=== PATIENT | female | born 2005 | race Caucasian/White ===

== ENCOUNTER 2024-10-11 18:17 | Emergency (ER) | payer BC, SELFPAY ==
[2024-10-11 18:19] VITALS: BP 105/71; PULSE 85; RESP 18; TEMP 36.4; O2SAT 97; BMI 27.6
--- NOTE | 2024-10-11 18:22 | EX.ED.DYSGE1 ---
HPI History of Present Illness Chief Complaint: Chest Other [facility] Medical History (Updated 10/11/24 @ 18:33 by Ailyn Campo) Anxiety Hip dysplasia, congenital Home Medications ?Medication ?Instructions ?Recorded ?Last Taken ?Type No Known/Unobtainable [No Known 02/15/14 Unknown History Home Medications] Allergy/AdvReac Type Severity Reaction Status Date / Time No Known Allergies Allergy Verified 10/11/24 18:19 Surgical History (Updated 10/11/24 @ 18:33 by Ailyn Campo) H/O wisdom tooth extraction Social History (Updated 10/11/24 @ 18:33 by Ailyn Campo) household members: family housing: house current occupational status: employed Smoking Status: Never smoker EXAM Physical Exam Const Vital Signs: 10/11/24 18:19 10/11/24 18:35 Temperature 97.6 F L Temperature Source Temporal Pulse Rate 85 Respiratory Rate 18 Respiratory Effort Normal Non-Labored Blood Pressure 105/71 Blood Pressure Mean 82 Pulse Ox 97 Oxygen Delivery Method Room Air MDM MDM MDM Narrative Medical decision making narrative: HISTORY OF PRESENT ILLNESS: Chief complaint: Lump 19 female presents with concern for lumps. Notes yesterday she noticed a palpable lump in her right neck/right supraclavicular area. Denies sore throat. Denies ear pain. Denies fever. Denies chills. Denies breast mass lumps or other changes. REVIEW OF SYSTEMS: Pertinent positives: Lumps Pertinent negatives: Fevers, chills, sore throat, ear pain, breast mass or lump. PHYSICAL EXAM: Nursing triage notes reviewed, Vital signs reviewed Constitutional: please see mdm HENT: MMM Eyes: Pupils equal round and reactive to light, Extraocular muscles intact Neck: No stridor, no JVD, full neck ROM, palpable lymphadenopathy in the right anterior cervical chain and right supraclavicular chain Lungs: Clear to auscultation, No wheezing or rales. No increased work of breathing, no conversational dyspnea, no accessory muscle use, no nasal flaring. No respiratory distress noted Heart: Regular rate and rhythm, No murmurs, No rubs and No gallops, 2+ distal pulses (radial, femoral, posterior tibial) in all extremities Abdomen: Soft, there is no tenderness, rigidity, rebound or guarding, no obvious peritoneal signs, no palpable pulsatile abdominal masses, no auscultated abdominal bruit Neuro: No new focal neurological deficits, cranial nerves II through XII intact, 5/5 strength in all present extremities. Intact sensation to light touch in all present extremities, 2+ reflexes bilateral patella tendons. Skin: No rash or lesions noted MEDICAL DECISION MAKING: Chief Complaint: please see HPI Factors affecting care: none Social determinants of health: Denies drugs History obtained from others: Significant other (boyfriend) Consults: none [facility] Narrative: The patient was initially hemodynamically stable, afebrile and nontoxic. Exam consistent with likely lymphadenopathy. The patient HEENT exam is unremarkable for signs otitis media, pharyngitis, peritonsillar abscess. No abscess. There is no obvious stridor or other neck pathology noted. Patient denied any breast pathology Encouraged Tylenol and ibuprofen. Encouraged prompt follow-up for worsening symptoms and follow-up if symptoms persist for greater than 2 weeks. The patient and/or family, caregivers express understanding. The patient and/or family, caregivers agrees with the plan. Shared decision making: I will have a discussion with the patient and or visitors regarding risk/benefits of further testing or admission. They will be made aware of of the risk/benefits inherent in this decision they will be given the opportunity to voice understanding. Total critical care time today provided was at least 0 minutes. This excludes separately billable procedures. Critical care time (if documented) is secondary to the patient having high probability of clinically significant/life threatening deterioration in the patient's condition which required my urgent intervention. Impression: 1. Cervical of adenopathy Dispo: Discharge home This note was generated with [employer] dictation software. It may contain incorrect words, spelling, and punctuation that were not noted in review of the chart prior to signing. Discharge Plan Triage Chief Complaint: Chest Other ED Provider: Pastor Raymundo Dx/Rx/DC Orders Instructions: Lymphadenopathy Prescriptions: No Action No Known Home Medications Primary Care Provider: Sujit Jolly Referrals: Sujit Jolly MD [Primary Care Provider] - Activity Restrictions/Additional Instructions: Thank you for trusting us with your care today! Please take Tylenol (2 pills, 650 mg), ibuprofen (2 pills, 400 mg) every 6 hours as needed for pain and fever control. Please return to the emergency department if your symptoms change or worsen. Please follow with your primary care physician for further outpatient evaluation and management. Please seek further medical attention if your symptoms persist for greater than 2 weeks or change rapidly or abruptly. Print Language: Panamanian Disposition Disposition: Home, Self Care
--- OUTSIDE RECORDS SUMMARY | 2024-10-11 18:50 | XMS RPT_ITS | CCD ---
Author Organization [facility] Care Team Providers Care Locomotive Driver Name Role Phone Sujey Fowler MD Primary Care Provider SUJEY FOWLER Primary Care Unavailable SUJEY FOWLER Primary Care Unavailable SUJEY FOWLER MD Consulting Unavailable DIDTIFFANY MONTENEGRO DO Attending Unavailable DIDTIFFANY MONTENEGRO DO Primary Care Unavailable DIDTIFFANY MONTENEGRO DO Admitting Unavailable SUJEY FOWLER MD Referring Unavailable PROVIDER, UNKNOWN Consulting Unavailable Medications Completed/Discontinued Medications Medication Drug Class(es) Dates Sig (Normalized) Sig (Original) brompheniramine maleate 0.4 mg/ml / dextromethorphan hydrobromide 2 mg/ml / pseudoephedrine hydrochloride 6 mg/ml oral solution (1 source) alpha-Adrenergic Agonist, Uncompetitive K-mrgljc-S-aspartat e Receptor Antagonist, Sigma-1 Agonist Start: 01-25-2023 take 10 mL by mouth every six hours as needed Brompheniramine-Pse udoeph-DM (BROMFED DM) 2-30-10 mg/5 mL syrup Take 10 mL by mouth four times daily as needed. 200 mL 0 01/25/2023 Active Comment on above: Take 10 mL by mouth four times daily as needed. diphenhydrAMINE hydrochloride 2.5 mg/ml oral solution (2 sources) Histamine-1 Receptor Antagonist diphenhydrAMINE (BENADRYL ALLERGY) 12.5 mg/5 mL liquid Take by mouth four times daily as needed. 0 Active Comment on above: Take by mouth four t imes daily as needed. fluticasone propionate 0.05 mg/actuat metered dose nasal spray (1 source) Corticosteroid Start: 01-25-2023 take 2 spray(s) by mouth once daily fluticasone (FLONASE) 50 mcg/actuation nasal spray Use 2 Sprays in each nostril once daily. Rinse mouth after use. 1 Each 0 01/25/2023 Active Comment on above: Use 2 Sprays in each nostril once daily. Rinse mouth after use. Problems Problem Classification Problem Date Documented Da te Episodic/Chronic Nausea and vomiting (3 sources) Nausea with vomiting, unspecified; Translations: [Nausea with vomiting, unspecified] Onset: 03-01-2023 Episodic Other bone disease and musculoskeletal deformities (2 sources) Apophysitis; Translations: [Osteochondropathy , unspecified, unspecified thigh] Onset: 06-05-2018 06-05-2018 Chronic Other congenital anomalies (2 sources) Congenital subluxation of hip; Translations: [Congenital partial dislocation of unspecified hip, unilateral] Onset: 2004 2004 Chronic Other ear and sense organ disorders (1 source) Bilateral earache; Translations: [Otalgia, bilateral] 01-25-2023 Episodic Other upper respiratory infections (2 sources) Sore throat symptom; Translations: [Acute pharyngitis, unspecified] 01-24-2023 Episodic Substance-related disorders (1 source) Nicotine dependence, unspecified, uncomplicated; Translations: [Nicotine dependence, unspecified, uncomplicated] Onset: 03-01-2023 Chronic Results Test Name Value Interpretation Reference Range Facil ity COVID NAAT, UPPER RESPIRATOR Y, ROUTINEon 01-26-2023 SARS-CoV-2 (COVID-19) RNA BRAD+probe Ql (Resp) Not detected See comment [facility] ROUTINE FLU A/B + RSVon 01-06 FLUAV RNA BRAD+probe Ql (Unsp spec) Not detected Not Detected [facility] FLUBV RNA BRAD+probe Ql (Unsp spec) Not detected Not Detected [facility] RSV A RNA BRAD+probe Ql (Unsp spec) Not detected Not Detected [facility] CNOVon 01-25-2023 CNOV Office Visit (UCWSTR ) WESTON MEDEIROS ([id number]) 3 F Date Time Provider Department 9/21/23 12:30 PM BENY RAMSEY WSTR During your visit today, we recorded the following information about you: Temperature Pulse Respiration Blood pressure 98 degrees 72/minute 18/minute 106/74 Weight 83.6 kg Beny Ramsey PA-C 01/25/2023 2:20 PM Signed This note was created using [employer]. Subjective Weston Medeiros is a 17 year old female. HPI Patient presents with bilateral ear pain, cough, congestion for 3 days. She was seen yesterday and had a negative strep. She had declined viral testing. No fever. No cp or sob. She tried mucinex and ibuprofen otc. Review of Systems Constitutional: Positive for fatigue. Negative for fever. HENT: Positive for congestion, ear pain, rhinorrhea and sore throat. Respiratory: Positive for cough. Negative for shortness of breath and wheezing. Cardiovascular: Negative. Gastrointestinal: Negative. Genitourinary: Negative. Musculoskeletal: Negative. All other systems reviewed and are negative. PAST MEDICAL HISTORY Diagnosis Date Congenital dislocation of hip, bilateral PMH - PAST MEDICAL HISTORY OF 07/30/07 normal color vision Current Outpatient Medications Medication Sig Dispense Refill Brompheniramine-Pseudo eph-DM (BROMFED DM) 2-30-10 mg/5 mL syrup Take 10 mL by mouth four times daily as needed. 200 mL 0 fluticasone (FLONASE) 50 mcg/actuation nasal spray Use 2 Sprays in each nostril once daily. Rinse mouth after use. 1 Each 0 diphenhydrAMINE (BENADRYL ALLERGY) 12.5 mg/5 mL liquid Take by mouth four times daily as needed. (Patient not taking: Reported on 01/24/2023) No current facility-administered medications for this visit. PAST SURGICAL HISTORY Procedure Laterality Date PAST SURGICAL HISTORY OF age 3 months, hip dysplasia surgery per Dr Alegria FAMILY HISTORY Problem Relation Age of Onset Heart Maternal Grandfather Breast Cancer Maternal Grandfather mggm and pggm Social History Tobacco Use Smoking status: Never Smokeless tobacco: Never Objective BP 106/74 Pulse 72 Temp 36.7 ?C (98 ?F) (Tympanic) Resp 18 Wt 83.6 kg (184 lb 3.2 oz) LMP 01/22/2023 (Exact Date) SpO2 97% Physical Exam Vitals reviewed. Constitutional: Appearance: Normal appearance. HENT: Head: Normocephalic and atraumatic. Right Ear: Tympanic membrane, ear canal and external ear normal. Left Ear: Tympanic membrane, ear canal and external ear normal. Nose: Congestion present. Mouth/Throat: Mouth: Mucous membranes are moist. Pharynx: Oropharynx is clear. Cardiovascular: Rate and Rhythm: Normal rate and regular rhythm. Heart sounds: Normal heart sounds. Pulmonary: Effort: Pulmonary effort is normal. Breath sounds: Normal breath sounds. Musculoskeletal: Cervical back: Neck supple. Skin: General: Skin is warm and dry. Findings: No rash. Neurological: Mental Status: She is alert. Assessment and Plan ASSESSMENT/PLAN: 1. URI, acute - ICD9: 465.9, ICD10: J06.9 (primary diagnosis) - Discussed viral etiology and rationale for treatment. - Symptomatic treatment with prn analgesia - Supportive care with fluids and rest - COVID AND INFLUENZA A/B AND RSV NAAT, ROUTINE - COVID NAAT, UPPER RESPIRATORY, ROUTINE - ROUTINE FLU A/B + RSV 2. Otalgia of both ears - ICD9: 388.70, ICD10: H92.03 Flonase otc, may continue ibuprofen. Beny Ramsey PA-C Allergies As of Date: 01/25/2023 (No Known Allergies) Date Reviewed: 01/25/2023 Reviewed by: Tea Rodrigues LPN - Fully Assessed Reason for Visit: Ear Pain [817] Cmt: Right ear pain x 3 days Primary Visit Diagnosis:URI, acute [J06.9] Other Visit Diagnosis:Otalgia of both ears [H92.03] Order(s):Bromphenirami gg-Ichlvlshf-OM (BROMFED DM) 2-30-10 mg/5 mL syrupTake 10 mL by mouth four times daily as needed.Disp: 200 mLRfl: 0 fluticasone (FLONASE) 50 mcg/actuation nasal sprayUse 2 Sprays in each nostril once daily. Rinse mouth after use.Disp: 1 EachRfl: 0 COVID AND INFLUENZA A/B AND RSV NAAT, ROUTINE [SQCVFLRS] Order #: [id number]. #:[id number] COVID NAAT, UPPER RESPIRATORY, ROUTINE [SQCOVID] Reflex Order#: [id number] (Ord#:[id number])Spec. #:[id number] ROUTINE FLU A/B + RSV [SQRTFRSV] Reflex Order#: [id number] (Ord#:[id number])Spec. #:[id number] Prescriptions as of 01/25/2023 - Brompheniramine-Pseudo eph-DM (BROMFED DM) 2-30-10 mg/5 mL syrup Take 10 mL by mouth four times daily as needed. - fluticasone (FLONASE) 50 mcg/actuation nasal spray Use 2 Sprays in each nostril once daily. Rinse mouth after use. - diphenhydrAMINE (BENADRYL ALLERGY) 12.5 mg/5 mL liquid Take by mouth four times daily as needed. Problem List As Of Date 01/25/2023 Noted Resolved NARESH HIP SUBLUX, UNILAT [Q65.30] 2004 Fracture of radius, distal, right, closed [S52.*07/31/2011 (more content not included)... Normal [facility] ROUTINE FLU A/B + RSVon 01-06 FLUAV RNA BRAD+probe Ql (Unsp spec) Not detected Normal Not Detected [facility] Comment on above: Order Comment: Speci men Type: SWAB OF INTERNAL NOSE Ordering Facility: [facility] Address: [address] [place] [address] Performed By: #### R TFRSV, 46272-3 #### [facility] CLIA [id number] [address] [place] [address] [place] FLUBV RNA BRAD+probe Ql (Unsp spec) Not detected Normal Not Detected [facility] Comment on above: Order Comment: Speci men Type: SWAB OF INTERNAL NOSE Ordering Facility: [facility] Address: [address] [place] [address] Performed By: #### R TFRSV, [id number] #### [facility] CLIA [id number] [address] [place] [address] [place] RSV A RNA BRAD+probe Ql (Unsp spec) Not detected Normal Not Detected [facility] Comment on above: Order Comment: Speci men Type: SWAB OF INTERNAL NOSE Ordering Facility: [facility] Address: [address] [place] [id number] Performed By: #### R TFRSV, 47063-2 #### [facility] CLIA [id number] [facility] OF [place] SARS-CoV-2 RNA Resp Ql BRAD+p robeon 01-25-2023 SARS-CoV-2 (COVID-19) RNA BRAD+probe Ql (Resp) COVID 19 RESULT: Not detected The method used is RT-PCR or an equivalent NAAT method. Reference Range (the expected result in uninfected individuals): Not detected Normal [facility] Comment on above: Performed By: #### R TFRSV, 71703-7 #### [facility] CLIA [id number] [address] [place] [address] [place] CNOVon 01-24-2023 CNOV Office Visit (UCTR ) ELIZABETHJessWESTON ([id number]) 3 F Date Time Provider Department 01/24/23 10:15 AM CARLOTA DENNEY [facility] During your visit today, we recorded the following information about you: Temperature Pulse Respiration Blood pressure 98.4 degrees 61/minute 22/minute 110/64 Weight Last Period 84.8 kg 01/22/23 Carlota Denney APRN.BUSINESS SUPPORT ASSISTANT 01/24/2023 10:27 AM Signed CC: Patient presents with: Sore Throat: Headache, bilat ear pain, congestion x 1 day HPI: Weston Nye Waldemar is a 17 year old female who presents to the office with complaint of head congestion, sore throat, and ear symptoms for the past day. Symptoms are staying the same. Associated symptoms includes headache. Denies fever, nausea, vomiting , and diarrhea. Treatments tried include nothing so far. with no relief of symptoms. Sick contacts: unknown. History of asthma, frequent episodes of bronchitis, chronic bronchitis, bronchiectasis or COPD: No Smoker: No Seasonal/environmental allergies: No The ROS is otherwise negative. The patient's pmh, medications, allergies, and past visits are reviewed. PHYSICAL EXAM: BP 110/64 Pulse 61 Temp 36.9 ?C (98.4 ?F) Resp 22 Wt 84.8 kg (187 lb) LMP 01/22/2023 (Exact Date) SpO2 98% General appearance: alert, cooperative, pleasant, in no acute distress Head: Normocephalic Eyes: EOM's intact, conjunctiva pink and moist, no icterus, sclera white, non-injected Ears: Right ear: External ear/canal- Normal, TM - clear with good landmarks. Left ear: External ear/canal- Normal, TM - clear with good landmarks Oropharynx:moderate erythema, without exudates present Heart: Negative. RRR without obvious murmur, gallop, or rubs. No ectopy. Lungs: clear to auscultation, without rales or wheeze, good air exchange PAST MEDICAL HISTORY Diagnosis Date Congenital dislocation of hip, bilateral PMH - PAST MEDICAL HISTORY OF 07/30/07 normal color vision PAST SURGICAL HISTORY Procedure Laterality Date PAST SURGICAL HISTORY OF age 3 months, hip dysplasia surgery per Dr Alegria ALLERGIES Patient has no known allergies. MEDICATIONS diphenhydrAMINE (BENADRYL ALLERGY) 12.5 mg/5 mL liquid Take by mouth four times daily as needed. (Patient not taking: Reported on 01/24/2023) FAMILY HISTORY Problem Relation Age of Onset Heart Maternal Grandfather Breast Cancer Maternal Grandfather mggm and pggm Social History Tobacco Use Smoking status: Never Smokeless tobacco: Never ASSESSMENT/PLAN: 1. Sore throat - ICD9: 462, ICD10: J02.9 - STREP A MOLECULAR (POC) - neg Does not want a viral swab. Potential red flag symptoms discussed with the patient. Reviewed appropriate action plan to take if red flag symptoms occur. Patient agreeable to treatment plan. Carlota Denney APRN.BUSINESS SUPPORT ASSISTANT Allergies As of Date: 01/24/2023 (No Known Allergies) Date Reviewed: 01/24/2023 Reviewed by: Rachel Regan LPN - Fully Assessed Reason for Visit: Sore Throat [200] Cmt: Headache, bilat ear pain, congestion x 1 day Primary Visit Diagnosis:Sore throat [J02.9] Order(s):STREP A MOLECULAR (POC) [9981357] Order #: [id number]. #:[id number] Prescriptions as of 01/24/2023 - diphenhydrAMINE (BENADRYL ALLERGY) 12.5 mg/5 mL liquid Take by mouth four times daily as needed. 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] 06/05/2018 Letter Text Encounter Status:Closed by CARLOTA DENNEY on 01/24/23 Normal [facility] STREP A MOLECULAR (POC)on Procedural Control Valid [facility] Strep A (POCT) Negative Negative [facility] Vital Signs Date Time Vital Sign Value Performing Clinician Preet talbert 01-25-2023 12:32-0400 Body temperature 98.01 [degF] Beny Ramsey PA-C Work Phone: [facility] 01-25-2023 12:32-0400 Body weight 83.55 kg Beny Athy PA-C Work Phone: [facility] 01-25-2023 12:32-0400 Diastolic blood pressure 74 mm[Hg] Beny Athy PA-C Work Phone: [facility] 01-25-2023 12:32-0400 Heart rate 72 /min Beny Athy PA-C Work Phone: [facility] 01-25-2023 12:32-0400 Respiratory rate 18 /min Beny Athy PA-C Work Phone: [facility] 01-25-2023 12:32-0400 SaO2% (BldA) [Mass fraction] 97 % Beny Ramsey PA-C Work Phone: [facility] 01-25-2023 12:32-0400 Systolic blood pressure 106 mm[Hg] Beny Ramsey PA-C Work Phone: [facility] 01-24-2023 10:13-0400 Body temperature 98.4 [degF] Carlota Denney APRN.BUSINESS SUPPORT ASSISTANT Work Phone: [facility] 01-24-2023 10:13-0400 Body weight 84.82 kg Carlota Denney APRN.BUSINESS SUPPORT ASSISTANT Work Phone: [facility] 01-24-2023 10:13-0400 Diastolic blood pressure 64 mm[Hg] Carlota Denney APRN.BUSINESS SUPPORT ASSISTANT Work Phone: [facility] 01-24-2023 10:13-0400 Heart rate 61 /min Carlota Denney APRN.BUSINESS SUPPORT ASSISTANT Work Phone: [facility] 01-24-2023 10:13-0400 Respiratory rate 22 /min Carlota Denney APRN.BUSINESS SUPPORT ASSISTANT Work Phone: [facility] 01-24-2023 10:13-0400 SaO2% (BldA) [Mass fraction] 98 % Carlota Denney APRN.BUSINESS SUPPORT ASSISTANT Work Phone: [facility] 01-24-2023 10:13-0400 Systolic blood pressure 110 mm[Hg] Carlota Denney APRN.BUSINESS SUPPORT ASSISTANT Work Phone: [facility] Encounters Encounter Date Encounter Type Care Provider Facility Start: 03-01-2023 End: 03-01-2023 Emergency department patient visit SUJEY FOWLER [facility] Start: 01-25-2023 End: 01-25-2023 ambulatory SUJEY FOWLER Facility:[facility] Start: 01-25-2023 End: 01-25-2023 Patient encounter procedure Beny Ramsey PA-C Work Phone: [facility] Comment on above: URI, acute (Primary Dx); Otalgia of both ears Start: 01-24-2023 End: 01-24-2023 ambulatory SUJEY [place] Facility:[facility] Start: 01-24-2023 End: 01-24-2023 Patient encounter procedure Carlota Denney APRN.BUSINESS SUPPORT ASSISTANT Work Phone: [facility] Comment on above: Sore throat (Primary Dx) Procedures Date Procedure Procedure Detail Performing Clinician Start: 01-25-2023 COVID & INFLUENZA A/ B & RSV NAAT, ROUTINE Beny Ramsey PA-C Work Phone: Start: 01-25-2023 Iadna respiratry pro be & rev trnscr 3-5 targets Beny Ramsey PA-C Work Phone: Start: 01-25-2023 Sars-cov-2 detection by dna/rna Beny Ramsey PA-C Work Phone: Start: 01-24-2023 STREP A MOLECULAR (POC) Silvano Denson APRN.BUSINESS SUPPORT ASSISTANT Work Phone: Plan of Treatment Date Care Activity Detail Author Start: 01-05-2023 Influenza vaccination Influenza Vacc ine (#1) [facility] Start: 2022 Chlamydia Screening (18-24) Chlamydia Screening (18-24) [facility] Start: 2022 GC (Gonorrhea) Scree tomasa (18-24) GC (Gonorrhea) Screening (18-24) [facility] Start: 2022 Hepatitis C Screening Hepatitis C Sc reening [facility] Start: 2022 HIV Screening HIV Screening [facility] Start: 05-07-2022 Depression Assessment Depression Ass essment [facility] Start: 2020 Meningococcal B Vacc ine: Consider Based On Risk (1 of 2 - Patient Seeks Protection) Meningococcal B Vaccine: Consider Based On Risk (1 of 2 - Patient Seeks Protection) [facility] Start: 2020 Meningococcal Conjug ate Vaccine (1 - 2-dose series) Meningococcal Conjugate Vaccine (1 - 2-dose series) [facility] Start: 2018 Peds To Adult Transi tion Annual Assessment Peds To Adult Transition Annual Assessment [facility] Start: 2016 Peds To Adult Transi tion Initial Discussion Peds To Adult Transition Initial Discussion [facility] Start: 07-20-2015 Urine microalbumin profile DTa P,Tdap,Td Vaccine (6 - Tdap) [facility] Start: 2013 HPV Vaccine (1 - 2-d ose series) HPV Vaccine (1 - 2-dose series) [facility] Start: 01-19-2005 Covid-19 Vaccine (#1) Covid-19 Vacci ne (#1) [facility] Immunizations Immunization Date Immunization Notes Care Provider Fa cilikristen 03-27-2012 influenza virus vaccine, live, attenuated, for intranasal use Carlota Denney APRN.BUSINESS SUPPORT ASSISTANT Work Phone: [facility] 03-27-2012 influenza virus vaccine, unspecified formulation Carlota Denney APRN.BUSINESS SUPPORT ASSISTANT Work Phone: [facility] 04-27-2011 influenza virus vaccine, live, attenuated, for intranasal use Carlota Denney APRN.BUSINESS SUPPORT ASSISTANT Work Phone: [facility] Work Phone: 04-27-2010 influenza virus vaccine, live, attenuated, for intranasal use Carlota Denney APRN.BUSINESS SUPPORT ASSISTANT Work Phone: [facility] 03-22-2009 influenza virus vaccine, live, attenuated, for intranasal use Carlota Denney APRN.BUSINESS SUPPORT ASSISTANT Work Phone: [facility] Work Phone: 07-29-2008 diphtheria, tetanus toxoids and acellular pertussis vaccine Carlota Denney APRN.BUSINESS SUPPORT ASSISTANT Work Phone: [facility] 07-29-2008 measles, mumps and rubella virus vaccine Carlota Denney APRN.BUSINESS SUPPORT ASSISTANT Work Phone: [facility] 07-29-2008 poliovirus vaccine, inactivated Carlota Denney APRN.BUSINESS SUPPORT ASSISTANT Work Phone: [facility] 03-26-2008 chicken pox (disease) Krupa Denney APRN.BUSINESS SUPPORT ASSISTANT Work Phone: [facility] Work Phone: 03-26-2008 influenza virus vaccine, live, attenuated, for intranasal use Carlota Denney APRN.BUSINESS SUPPORT ASSISTANT Work Phone: [facility] Work Phone: 04-08-2007 influenza virus vaccine, unspecified formulation Carlota Denney APRN.BUSINESS SUPPORT ASSISTANT Work Phone: [facility] 04-25-2006 influenza virus vaccine, unspecified formulation Carlota Denney APRN.BUSINESS SUPPORT ASSISTANT Work Phone: [facility] Work Phone: 10-19-2005 diphtheria, tetanus toxoids and acellular pertussis vaccine Carlota Denney APRN.BUSINESS SUPPORT ASSISTANT Work Phone: [facility] 10-19-2005 haemophilus influenz ae type b vaccine, HbOC conjugate Carlota Denney APRN.BUSINESS SUPPORT ASSISTANT Work Phone: [facility] 07-20-2005 measles, mumps and rubella virus vaccine Carlota Denney APRN.BUSINESS SUPPORT ASSISTANT Work Phone: [facility] 07-20-2005 pneumococcal conjuga te vaccine, 7 valent Carlota Denney APRN.BUSINESS SUPPORT ASSISTANT Work Phone: [facility] 07-20-2005 varicella virus vaccine Ingrid Denney APRN.BUSINESS SUPPORT ASSISTANT Work Phone: [facility] 04-20-2005 DTaP-hepatitis B and poliovirus vaccine Carlota Denney APRN.BUSINESS SUPPORT ASSISTANT Work Phone: [facility] 03-23-2005 haemophilus influenz ae type b vaccine, HbOC conjugate Carlota Denney APRN.BUSINESS SUPPORT ASSISTANT Work Phone: [facility] Work Phone: 03-23-2005 influenza virus vaccine, unspecified formulation Carlota Denney APRN.BUSINESS SUPPORT ASSISTANT Work Phone: [facility] Work Phone: 03-23-2005 pneumococcal conjuga te vaccine, 7 valent Carlota Denney APRN.BUSINESS SUPPORT ASSISTANT Work Phone: [facility] Work Phone: 02-09-2005 DTaP-hepatitis B and poliovirus vaccine Carlota Denney APRN.BUSINESS SUPPORT ASSISTANT Work Phone: [facility] Work Phone: 02-09-2005 haemophilus influenz ae type b vaccine, HbOC conjugate Carlota Denney APRN.[facility] Work Phone: [facility] Work Phone: 02-09-2005 pneumococcal conjuga te vaccine, 7 valent Carlota Denney APRN.[facility] Work Phone: [facility] Work Phone: 2004 DTaP-hepatitis B and poliovirus vaccine Carlota Denney APRN.BUSINESS SUPPORT ASSISTANT Work Phone: [facility] Work Phone: 2004 haemophilus influenz ae type b vaccine, HbOC conjugate Carlota Denney APRN.[facility] Work Phone: [facility] Work Phone: 2004 pneumococcal conjuga te vaccine, 7 valent Carlota Denney APRN.[facility] Work Phone: [facility] Work Phone: Payers Date Payer Category Payer Unknown [employer] [id number] 2022-Present [phone] [address] [place] [address] PPO [id number] 2022 Unknown [id number] 2004 Unknown [id number] Unknown [id number] Social History Date Type Detail Facility Start: 08-18-2010 Tobacco smoking stat RUSTIS Never smoked tobacco [facility] Start: 08-18-2010 Tobacco use and exposure Smoke less tobacco non-user [facility] Start: 01-24-2023 End: 01-25-2023 Alcohol intake Not Asked [facility] Start: 04-11-2020 End: 01-24-2023 History of Social function [facility] Start: 04-11-2020 End: 01-24-2023 Tobacco use panel [facility] National Score (1-10 0), lower number is lower risk Not on file [facility] Start: 2004 Sex Assigned At Not on file [facility] Progress note 01-25-2023 Note Date & Type Note Facility 01-25-2023 Note HNO ID: [id number] Author: Beny Ramsey PA-C Service: ? Author Type: Physician Strategic Planning Consultant Type: Progress Notes Filed: 01/25/2023 2:20 PM Note Text: This note was created using [employer]. Subjective Weston Medeiros is a 17 year old female. HPI Patient presents with bilateral ear pain, cough, congestion for 3 days. She was seen yesterday and had a negative strep. She had declined viral testing. No fever. No cp or sob. She tried mucinex and ibuprofen otc. Review of Systems Constitutional: Positive for fatigue. Negative for fever. HENT: Positive for congestion, ear pain, rhinorrhea and sore throat. Respiratory: Positive for cough. Negative for shortness of breath and wheezing. Cardiovascular: Negative. Gastrointestinal: Negative. Genitourinary: Negative. Musculoskeletal: Negative. All other systems reviewed and are negative. PAST MEDICAL HISTORY Diagnosis Date Congenital dislocation of hip, bilateral PMH - PAST MEDICAL HISTORY OF 07/30/07 normal color vision Current Outpatient Medications Medication Sig Dispense Refill Iuhkxjatelufhjm-Mvtmtyutv-YV (BROMFED DM) 2-30-10 mg/5 mL syrup Take 10 mL by mouth four times daily as needed. 200 mL 0 fluticasone (FLONASE) 50 mcg/actuation nasal spray Use 2 Sprays in each nostril once daily. Rinse mouth after use. 1 Each 0 diphenhydrAMINE (BENADRYL ALLERGY) 12.5 mg/5 mL liquid Take by mouth four times daily as needed. (Patient not taking: Reported on 01/24/2023) No current facility-administered medications for this visit. PAST SURGICAL HISTORY Procedure Laterality Date PAST SURGICAL HISTORY OF age 3 months, hip dysplasia surgery per Dr Alegria FAMILY HISTORY Problem Relation Age of Onset Heart Maternal Grandfather Breast Cancer Maternal Grandfather mggm and pggm Social History Tobacco Use Smoking status: Never Smokeless tobacco: Never Objective BP 106/74 Pulse 72 Temp 36.7 ?C (98 ?F) (Tympanic) Resp 18 Wt 83.6 kg (184 lb 3.2 oz) LMP 01/22/2023 (Exact Date) SpO2 97% Physical Exam Vitals reviewed. Constitutional: Appearance: Normal appearance. HENT: Head: Normocephalic and atraumatic. Right Ear: Tympanic membrane, ear canal and external ear normal. Left Ear: Tympanic membrane, ear canal and external ear normal. Nose: Congestion present. Mouth/Throat: Mouth: Mucous membranes are moist. Pharynx: Oropharynx is clear. Cardiovascular: Rate and Rhythm: Normal rate and regular rhythm. Heart sounds: Normal heart sounds. Pulmonary: Effort: Pulmonary effort is normal. Breath sounds: Normal breath sounds. Musculoskeletal: Cervical back: Neck supple. Skin: General: Skin is warm and dry. Findings: No rash. Neurological: Mental Status: She is alert. Assessment and Plan ASSESSMENT/PLAN: 1. URI, acute - ICD9: 465.9, ICD10: J06.9 (primary diagnosis) - Discussed viral etiology and rationale for treatment. - Symptomatic treatment with prn analgesia - Supportive care with fluids and rest - COVID AND INFLUENZA A/B AND RSV NAAT, ROUTINE - COVID NAAT, UPPER RESPIRATORY, ROUTINE - ROUTINE FLU A/B + RSV 2. Otalgia of both ears - ICD9: 388.70, ICD10: H92.03 Flonase otc, may continue ibuprofen. Beny Ramsey PA-C [facility] History of Present illness Narrative 01-25-2023 Beny Ramsey PA-C - 01/25/2023 2:16 PM EDT Note Date & Type Note Facility 01-25-2023 History of Presen t illness Narrative This note was created using [employer]. Subjective Weston Medeiros is a 17 year old female. HPI Patient presents with bilateral ear pain, cough, congestion for 3 days. She was seen yesterday and had a negative strep. She had declined viral testing. No fever. No cp or sob. She tried mucinex and ibuprofen otc. Review of Systems Constitutional: Positive for fatigue. Negative for fever. HENT: Positive for congestion, ear pain, rhinorrhea and sore throat. Respiratory: Positive for cough. Negative for shortness of breath and wheezing. Cardiovascular: Negative. Gastrointestinal: Negative. Genitourinary: Negative. Musculoskeletal: Negative. All other systems reviewed and are negative. PAST MEDICAL HISTORY Diagnosis Date Congenital dislocation of hip, bilateral PMH - PAST MEDICAL HISTORY OF 07/30/07 normal color vision Current Outpatient Medications Medication Sig Dispense Refill Lqzvezlclsqwbuz-Kegtkukas-SA (BROMFED DM) 2-30-10 mg/5 mL syrup Take 10 mL by mouth four times daily as needed. 200 mL 0 fluticasone (FLONASE) 50 mcg/actuation nasal spray Use 2 Sprays in each nostril once daily. Rinse mouth after use. 1 Each 0 diphenhydrAMINE (BENADRYL ALLERGY) 12.5 mg/5 mL liquid Take by mouth four times daily as needed. (Patient not taking: Reported on 01/24/2023) No current facility-administered medications for this visit. PAST SURGICAL HISTORY Procedure Laterality Date PAST SURGICAL HISTORY OF age 3 months, hip dysplasia surgery per Dr Alegria FAMILY HISTORY Problem Relation Age of Onset Heart Maternal Grandfather Breast Cancer Maternal Grandfather mggm and pggm Social History Tobacco Use Smoking status: Never Smokeless tobacco: Never Objective BP 106/74 Pulse 72 Temp 36.7 C (98 F) (Tympanic) Resp 18 Wt 83.6 kg (184 lb 3.2 oz) LMP 01/22/2023 (Exact Date) SpO2 97% Physical Exam Vitals reviewed. Constitutional: Appearance: Normal appearance. HENT: Head: Normocephalic and atraumatic. Right Ear: Tympanic membrane, ear canal and external ear normal. Left Ear: Tympanic membrane, ear canal and external ear normal. Nose: Congestion present. Mouth/Throat: Mouth: Mucous membranes are moist. Pharynx: Oropharynx is clear. Cardiovascular: Rate and Rhythm: Normal rate and regular rhythm. Heart sounds: Normal heart sounds. Pulmonary: Effort: Pulmonary effort is normal. Breath sounds: Normal breath sounds. Musculoskeletal: Cervical back: Neck supple. Skin: General: Skin is warm and dry. Findings: No rash. Neurological: Mental Status: She is alert. Assessment and Plan ASSESSMENT/PLAN: 1. URI, acute - ICD9: 465.9, ICD10: J06.9 (primary diagnosis) - Discussed viral etiology and rationale for treatment. - Symptomatic treatment with prn analgesia - Supportive care with fluids and rest - COVID & INFLUENZA A/B & RSV NAAT, ROUTINE - COVID NAAT, UPPER RESPIRATORY, ROUTINE - ROUTINE FLU A/B + RSV 2. Otalgia of both ears - ICD9: 388.70, ICD10: H92.03 Flonase otc, may continue ibuprofen. Beny Ramsey PA-C documented in this encounter [facility] Progress note 01-24-2023 Note Date & Type Note Facility 01-24-2023 Note HNO ID: [id number] Author: Carlota Denney APRN.BUSINESS SUPPORT ASSISTANT Service: ? Author Type: Nurse Practitioner Type: Progress Notes Filed: 01/24/2023 10:27 AM Note Text: CC: Patient presents with: Sore Throat: Headache, bilat ear pain, congestion x 1 day HPI: Weston Medeiros is a 17 year old female who presents to the office with complaint of head congestion, sore throat, and ear symptoms for the past day. Symptoms are staying the same. Associated symptoms includes headache. Denies fever, nausea, vomiting , and diarrhea. Treatments tried include nothing so far. with no relief of symptoms. Sick contacts: unknown. History of asthma, frequent episodes of bronchitis, chronic bronchitis, bronchiectasis or COPD: No Smoker: No Seasonal/environmental allergies: No The ROS is otherwise negative. The patient's pmh, medications, allergies, and past visits are reviewed. PHYSICAL EXAM: BP 110/64 Pulse 61 Temp 36.9 ?C (98.4 ?F) Resp 22 Wt 84.8 kg (187 lb) LMP 01/22/2023 (Exact Date) SpO2 98% General appearance: alert, cooperative, pleasant, in no acute distress Head: Normocephalic Eyes: EOM's intact, conjunctiva pink and moist, no icterus, sclera white, non-injected Ears: Right ear: External ear/canal- Normal, TM - clear with good landmarks. Left ear: External ear/canal- Normal, TM - clear with good landmarks Oropharynx:moderate erythema, without exudates present Heart: Negative. RRR without obvious murmur, gallop, or rubs. No ectopy. Lungs: clear to auscultation, without rales or wheeze, good air exchange PAST MEDICAL HISTORY Diagnosis Date Congenital dislocation of hip, bilateral PMH - PAST MEDICAL HISTORY OF 07/30/07 normal color vision PAST SURGICAL HISTORY Procedure Laterality Date PAST SURGICAL HISTORY OF age 3 months, hip dysplasia surgery per Dr Alegria ALLERGIES Patient has no known allergies. MEDICATIONS diphenhydrAMINE (BENADRYL ALLERGY) 12.5 mg/5 mL liquid Take by mouth four times daily as needed. (Patient not taking: Reported on 01/24/2023) FAMILY HISTORY Problem Relation Age of Onset Heart Maternal Grandfather Breast Cancer Maternal Grandfather mggm and pggm Social History Tobacco Use Smoking status: Never Smokeless tobacco: Never ASSESSMENT/PLAN: 1. Sore throat - ICD9: 462, ICD10: J02.9 - STREP A MOLECULAR (POC) - neg Does not want a viral swab. Potential red flag symptoms discussed with the patient. Reviewed appropriate action plan to take if red flag symptoms occur. Patient agreeable to treatment plan. Carlota Denney APRN.BLANCA [facility] History of Present illness Narrative 01-24-2023 Carlota Denney APRN.BLANCA - 01/24/2023 10:20 AM EDT Note Date & Type Note Facility 01-24-2023 History of Presen t illness Narrative CC: Patient presents with: Sore Throat: Headache, bilat ear pain, congestion x 1 day HPI: Weston Medeiros is a 17 year old female who presents to the office with complaint of head congestion, sore throat, and ear symptoms for the past day. Symptoms are staying the same. Associated symptoms includes headache. Denies fever, nausea, vomiting , and diarrhea. Treatments tried include nothing so far. with no relief of symptoms. Sick contacts: unknown. History of asthma, frequent episodes of bronchitis, chronic bronchitis, bronchiectasis or COPD: No Smoker: No Seasonal/environmental allergies: No The ROS is otherwise negative. The patient's pmh, medications, allergies, and past visits are reviewed. PHYSICAL EXAM: BP 110/64 Pulse 61 Temp 36.9 C (98.4 F) Resp 22 Wt 84.8 kg (187 lb) LMP 01/22/2023 (Exact Date) SpO2 98% General appearance: alert, cooperative, pleasant, in no acute distress Head: Normocephalic Eyes: EOM's intact, conjunctiva pink and moist, no icterus, sclera white, non-injected Ears: Right ear: External ear/canal- Normal, TM - clear with good landmarks. Left ear: External ear/canal- Normal, TM - clear with good landmarks Oropharynx:moderate erythema, without exudates present Heart: Negative. RRR without obvious murmur, gallop, or rubs. No ectopy. Lungs: clear to auscultation, without rales or wheeze, good air exchange PAST MEDICAL HISTORY Diagnosis Date Congenital dislocation of hip, bilateral PMH - PAST MEDICAL HISTORY OF 07/30/07 normal color vision PAST SURGICAL HISTORY Procedure Laterality Date PAST SURGICAL HISTORY OF age 3 months, hip dysplasia surgery per Dr Alegria ALLERGIES Patient has no known allergies. MEDICATIONS diphenhydrAMINE (BENADRYL ALLERGY) 12.5 mg/5 mL liquid Take by mouth four times daily as needed. (Patient not taking: Reported on 01/24/2023) FAMILY HISTORY Problem Relation Age of Onset Heart Maternal Grandfather Breast Cancer Maternal Grandfather mggm and pggm Social History Tobacco Use Smoking status: Never Smokeless tobacco: Never ASSESSMENT/PLAN: 1. Sore throat - ICD9: 462, ICD10: J02.9 - STREP A MOLECULAR (POC) - neg Does not want a viral swab. Potential red flag symptoms discussed with the patient. Reviewed appropriate action plan to take if red flag symptoms occur. Patient agreeable to treatment plan. Carlota Denney APRN.BUSINESS SUPPORT ASSISTANT documented in this encounter [facility] History of Past illness Narrative 07-31-2011 Note Date & Type Note Facility 07-31-2011 History of Past i llness Narrative Problem Noted Date Diagnosed Date Resolved Date Fracture of radius, distal, right, closed 07/31/2011 08/05/2012 documented as of this encounter (statuses as of 01/24/2023) [facility] History of Past illness Narrative 07-31-2011 Note Date & Type Note Facility 07-31-2011 History of Past i llness Narrative Problem Noted Date Diagnosed Date Resolved Date Fracture of radius, distal, right, closed 07/31/2011 08/05/2012 documented as of this encounter (statuses as of 01/26/2023) [facility] Evaluation note Note Date & Type Note Facility Evaluation note Diagnosis Sore throat- Primary Acute pharyngitis documented in this encounter [facility] Evaluation note Note Date & Type Note Facility Evaluation note Diagnosis URI, acute- Primary Acute upper respiratory infections of unspecified site Otalgia of both ears Otalgia, unspecified documented in this encounter [facility] Summary Purpose Family History No Family History Records FoundNo Family History Records Found Advance Directives No Advanced Directives Records FoundNo Advanced Directives Records Found Additional Source Comments Source Comments (unrecognize d section and content) In the event this informatio n is protected by the Federal Confidentiality of Alcohol and Drug Abuse Patient Records regulations: The Federal rules restrict any use of the information to criminally investigate or prosecute any alcohol or drug abuse patient[facility] event this information is protected by the Federal Confidentiality of Alcohol and Drug Abuse Patient Records regulations: The Federal rules restrict any use of the information to criminally investigate or prosecute any alcohol or drug abuse patient.[facility] Reason for Visit (unrecogniz ed section and content) Reason Comments Sore Throat Headache, bilat ear pain, congestion x 1 day Reason Comments Ear Pain Right ear pain x 3 d ays Care Teams (unrecognized sec tion and content) Locomotive Driver Relationship Specialty Start Date End Date Sujey Fowler MD [address] [place] [address] PCP - General 04 Locomotive Driver Relationship Specialty Start Date End Date Sujey Fowler MD [address] [facility] [place] [address] PCP - General 04 INFORMATION SOURCE (unrecogn ized section and content) DATE CREATED AUTHOR 01/26/2023 [facility] DATE CREATED AUTHOR AUTHOR'S MINNIEIZ ATION 03/19/2023 [facility] FOR RECORDS PERTAINING TO PATIENTS WHO ARE OR HAVE BEEN ENROLLED IN A CHEMICAL DEPENDENCY/SUBSTANCEABUSE PROGRAM, SOME INFORMATION MAY BE OMITTED. This clinical summary was aggregated from multiple sources. Caution should be exercised in using it in the provision of clinical care. This summary normalizes information from multiple sources, and as a consequence, information in this document may materially change the coding, format and clinical context of patient data. In addition, data may be omitted in some cases. CLINICAL DECISIONS SHOULD BE BASED ON THE PRIMARY CLINICAL RECORDS. [facility] [employer] [facility]. provides no warranty or guarantee of the accuracy or completeness of information in this document.
[2024-10-11 19:17] VITALS: BP 106/72; PULSE 66; RESP 16; TEMP 36.4; O2SAT 100
== END 2024-10-11 19:27 | disposition home or self-care (01) ==
PROVIDERS: Emergency Provider Emergency Medicine; PCP Pediatrics; Referring Provider Emergency Medicine; Visit Provider Emergency Medicine
DX: R59.0 Localized enlarged lymph nodes (principal)
CPT/HCPCS: 99282